=== PATIENT | male | born 1970 | race Hispanic/Latino ===

== ENCOUNTER 2021-11-06 11:13 | Emergency (ER) | payer OTHER ==
[~2021-11-06] VITALS: Ht 170.2 cm; Wt 63.5 kg
[2021-11-06] MEDS ORDERED: XANAX0.5 MG PO (11:27)
[2021-11-06] MEDS ORDERED: PAXIL CR25 MG PO (11:27)
[2021-11-06] MEDS ORDERED: ATRIPLA TABLET1 TAB (11:27)
[2021-11-06] MEDS ORDERED: ULTRAM 50MG50 MG PO (12:10)
[2021-11-06] MEDS ORDERED: ZOLOFT100 MG PO (15:03)
[2021-11-06] MEDS ORDERED: TRAZODONE HCL100 MG PO (15:03)
== END 2021-11-06 12:23 | disposition home or self-care (01) ==
LOC: FSED 11:23
DX: S93.401A Sprain of unspecified ligament of right ankle, initial encounter (principal); W18.49XA Other slipping, tripping and stumbling without falling, initial encounter; Y93.E5 Activity, floor mopping and cleaning; Y92.008 Other place in unspecified non-institutional (private) residence as the place of occurrence of the external cause; F41.9 Anxiety disorder, unspecified
CPT/HCPCS: 99284